=== PATIENT | male | born 1990 | race African-American/Black ===

== ENCOUNTER 2016-11-03 15:37 | Emergency (ER) | payer SELFPAY ==
[2015-02-17 19:59] VITALS: BP 122/79
[~2016-11-03] VITALS: Ht 193 cm; Wt 88.5 kg
--- NOTE | 2016-11-03 16:22 | PHYS DOC ---
Past Medical History Past Medical History: Asthma Past Surgical History: Other Additional Past Surgical Histo: R ELBOW Alcohol Use: None Drug Use: None Adult General Chief Complaint Chief Complaint: SEXUALLY TRANSMITTED DISEASE HPI HPI Patient is a 26 year old male presents to the emergency department with a history of exposure to chlamydia. Patient states his girl friend called him and told him that she had tested positive for chlamydia. Patient denies any penile drainage. He denies any difficulty with urination frequency urgency or pain with urination denies any abdominal pain nausea vomiting or fevers. Review of Systems Review of Systems Constitutional: Denies fever or chills [] Eyes: Denies change in visual acuity, redness, or eye pain [] HENT: Denies nasal congestion or sore throat [] Respiratory: Denies cough or shortness of breath [] Cardiovascular: No additional information not addressed in HPI [] GI: Denies abdominal pain, nausea, vomiting, bloody stools or diarrhea [] : Denies dysuria or hematuria [] Musculoskeletal: Denies back pain or joint pain [] Integument: Denies rash or skin lesions [] Neurologic: Denies headache, focal weakness or sensory changes [] Current Medications Current Medications Current Medications Medications (Trade) Dose Ordered Sig/Sonja Start Time Stop Time Status Last Admin Dose Admin Azithromycin (Zithromax) 1,000 mg 1X ONCE 11/03/16 17:00 11/03/16 17:01 Ceftriaxone Sodium (Rocephin Im) 250 mg 1X ONCE 11/03/16 17:00 11/03/16 17:01 Metronidazole (Flagyl) 2,000 mg 1X ONCE 11/03/16 17:00 11/03/16 17:01 Allergies Allergies Allergies Coded Allergies Type Severity Reaction Last Updated Verified No Known Drug Allergies 12/17/14 No Physical Exam Physical Exam Constitutional: Well developed, well nourished, no acute distress, non-toxic appearance. [] HENT: Normocephalic, atraumatic, bilateral external ears normal, oropharynx moist, no oral exudates, nose normal. [] Eyes: PERRLA, EOMI, conjunctiva normal, no discharge. [] Neck: Normal range of motion, no tenderness, supple, no stridor. [] Cardiovascular:Heart rate regular rhythm, no murmur [] Lungs & Thorax: Bilateral breath sounds clear to auscultation [] Skin: Warm, dry, no erythema, no rash. [] Back: No tenderness Extremities: No tenderness, no cyanosis, no clubbing, ROM intact, no edema. [] Neurologic: Alert and oriented X 3, normal motor function, normal sensory function, no focal deficits noted. [] Psychologic: Affect normal, judgement normal, mood normal. [] Penile area without redness, lesions, no discharge noted, no testicular pain Current Patient Data Vital Signs Vital Signs Date Time Temp Pulse Resp B/P Pulse Ox O2 Delivery O2 Flow Rate FiO2 11/03/16 16:00 98.1 76 18 107/59 97 Room Air 98.1 Lab Values Laboratory Tests Test 11/03/16 16:10 Urine Collection Type Unknown Urine Color Yellow Urine Clarity Clear Urine pH 7.0 Urine Specific [place] 1.015 Urine Protein Negativemg/dL (NEG-TRACE) Urine Glucose (UA) Negativemg/dL (NEG) Urine Ketones (Stick) Negativemg/dL (NEG) Urine Blood Negative (NEG) Urine Nitrite Negative (NEG) Urine Bilirubin Negative (NEG) Urine Urobilinogen Dipstick 1.0mg/dL (0.2 mg/dL) Urine Leukocyte Esterase Small (NEG) Urine RBC Occ/HPF (0-2) Urine WBC 5-10/HPF (0-4) Urine Bacteria 0/HPF (0-FEW) Urine Mucus Slight/LPF Urine Sperm Present/HPF EKG EKG [] Radiology/Procedures Radiology/Procedures [] Course & Med Decision Making Course & Med Decision Making Pertinent Labs and Imaging studies reviewed. (See chart for details) Patient was provided with Rocephin injection with zithromax, and flagyl. Patient provided urine and was sent to lab. Urine positive for UTI patient will be placed on Cipro. Recommended plenty of fluids such as water and cranberry juice. Avoid cranberry juice cocktail, carbonated beverages, caffeine, citrus fruits and alcohol as this is considered irritants to the bladder. Patient was instructed to avoid sexual intercourse for 2 weeks, notify sex partners of treatment and avoid sexual intercourse for 2 weeks once they have been treated. Patient was provided with signs and symptoms to return to the emergency department. Patient agrees with treatment regimen and followup recommendations. Dragon Disclaimer Dragon Disclaimer This electronic medical record was generated, in whole or in part, using a voice recognition dictation system. Departure Departure Impression: Primary Impression: Exposure to STD Additional Impression: UTI (urinary tract infection) Disposition: 01 HOME, SELF-CARE Condition: STABLE Referrals: NO PCP (PCP) Patient Instructions: Sexually Transmitted Disease, [id number], Urinary Tract Infection, [id number] Additional Instructions: Activity as tolerated Avoid sexual activity for the next 2 weeks Notify your partners that you have been treated No sexual intercourse for 2 weeks after your partner has been treated. Drink plenty of fluids such as water and cranberry juice. Avoid cranberry juice cocktail, carbonated beverages, caffeine, citrus fruits, and alcohol as these are consider irritants to the bladder. Followup with primary care provider in 3-5 days Return to emergency department as needed for signs and symptoms that become worse. Scripts Ciprofloxacin Hcl (Cipro)500 Mg Tablet1 Tab PO BID #14 TAB Prov:ALEXEI SELLERS APRN 11/03/16 Problem Qualifiers ALEXEI SELLERS APRN Nov 03, 2016 16:22
[2016-11-03 16:23] LABS: BILIRUBIN,URINE NEGATIVE (NEG); GLUCOSE,URINE NEGATIVE (NEG); NITRITE,URINE NEGATIVE (NEG); PROTEIN,URINE NEGATIVE (NEG-TRACE)
[2016-11-03 16:42] LABS: BACTERIA,URINE 0 /HPF (0-FEW); RBC,URINE OCC /HPF (0-2); SPERM,URINE PRESENT /HPF
[2016-11-03] MEDS ORDERED: CIPR500T94 PO (16:50)
[2016-11-03] MEDS ORDERED: AZITHROMYCIN 250 MG TABLET. PO ONE (17:00)
[2016-11-03] MEDS ORDERED: CEFTRIAXONE IM 250 MG VIAL. IM ONE (17:00)
[2016-11-03] MEDS ORDERED: METRONIDAZOLE 500 MG TABLET. PO ONE (17:00)
--- NOTE | 2016-11-09 07:17 | VNOTE ---
CALL BACK NOTE CALL BACK Microbiology 11/03/16 Urine Culture - Final, Complete 11/03/16 Urine Culture Result 1 (LUANN) - Final, Complete Patient is positive for chlamydia but was treated. Called and left him a voicemail. ILA TRAMMELL APRN Nov 09, 2016 07:17
== END 2016-11-03 17:10 | disposition home or self-care (01) ==
LOC: ER 15:37
DX: Z20.2 Contact with and (suspected) exposure to infections with a predominantly sexual mode of transmission (principal); N39.0 Urinary tract infection, site not specified; J45.909 Unspecified asthma, uncomplicated
CPT/HCPCS: 81001; 87086; 87491; 87591; 96372; 99284; J0696; Q0144

== ENCOUNTER 2020-01-23 12:17 | Emergency (ER) | payer SELFPAY ==
[~2020-01-23] VITALS: Ht 193 cm; Wt 86.4 kg
[~2020-01-23 12:17] MED LIST: CIPR500T94 PO
[2020-01-23 12:47] VITALS: BP 126/78
[2020-01-23] MEDS ORDERED: HYDROcodone/APAP 5/325MG 1 TAB TABLET PO ONE (13:00)
--- NOTE | 2020-01-23 13:05 | PHYS DOC ---
Past Medical History Past Medical History: Asthma (ALEXEI GOMEZ APRN) Past Surgical History: Other Additional Past Surgical Histo: R ELBOW, R KNEE (ALEXEI GOMEZ APRN) Smoking Status: Current Every Day Smoker Alcohol Use: Rarely Drug Use: Marijuana (ALEXEI GOMEZ APRN) General Adult EDM: Chief Complaint: HAND PROBLEM HPI: HPI: Patient is a 29 year old male who presents with right hand pain and swelling after a fall today. Patient reports that he was walking down some stairs when his sandal got caught on a step and he fell he use his right hand to catch himself. He rates his pain 10 out of 10. He did not take anything for pain prior to arrival. Patient has some swelling to the ulnar side of right hand. Patient is able to wiggle fingers and bend his wrist, he is able to make a fist but reports increased pain with making a fist. Patient has good range of motion, sensation intact, strong pulse, warm extremity, cap refill less than 2 seconds. (ALEXEI GOMEZ APRN) Review of Systems: Review of Systems: Musculoskeletal: Denies back pain. Right hand joint pain. [] (ALEXEI GOMEZ MANAGER STRATEGY) Heart Score: Risk Factors: Risk Factors: DM, Current or recent (<one month) smoker, HTN, HLP, family history of CAD, obesity. Risk Scores: Score 0 - 3: 2.5% MACE over next 6 weeks - Discharge Home Score 4 - 6: 20.3% MACE over next 6 weeks - Admit for Clinical Observation Score 7 - 10: 72.7% MACE over next 6 weeks - Early Invasive Strategies (ALEXEI GOMEZ MANAGER STRATEGY) Allergies: Allergies: Allergies Coded Allergies Type Severity Reaction Last Updated Verified No Known Drug Allergies 12/17/14 No (ALEXEI GOMEZ MANAGER STRATEGY) Physical Exam: PE: Constitutional: Well developed, well nourished, no acute distress, non-toxic appearance. [] HENT: Normocephalic, atraumatic, bilateral external ears normal, oropharynx moist, no oral exudates, nose normal. [] Eyes: PERRLA, EOMI, conjunctiva normal, no discharge. [] Neck: Normal range of motion, no tenderness, supple, no stridor. [] Cardiovascular:Heart rate regular rhythm, no murmur [] Lungs & Thorax: Bilateral breath sounds clear to auscultation [] Abdomen: Bowel sounds normal, soft, no tenderness, no masses, no pulsatile masses. [] Skin: Warm, dry, no erythema, no rash. [] Back: No tenderness, no CVA tenderness. [] Extremities: Right lateral hand tenderness, no cyanosis, no clubbing, ROM intact, 1+ edema. [] Neurologic: Alert and oriented X 3, normal motor function, normal sensory function, no focal deficits noted. [] Psychologic: Affect normal, judgement normal, mood normal. [] (ALEXEI GOMEZ APRN) Current Patient Data: Vital Signs: Vital Signs Date Time Temp Pulse Resp B/P (MAP) Pulse Ox O2 Delivery O2 Flow Rate FiO2 01/23/20 12:47 98.1 82 12 126/78 (94) 99 Room Air 98.1 (ALEXEI GOMEZ APRN) EKG: EKG: [] (ALEXEI GOMEZ APRN) Radiology/Procedures: Radiology/Procedures: [] Impression: [facility] [address] [place] [address] IMAGING REPORT Signed PATIENT: CHASITY WATERS EACCOUNT: [id number] : 1990 LOCATION: ER AGE: 29 SEX: M EXAM STATUS: REG ER ORD. PHYSICIAN: ALEXEI GOMEZ APRN REASON: pain after fall rt hand PROCEDURE: HAND RIGHT 3V PROCEDURE: WRIST 3V RIGHT, HAND RIGHT 3V STUDY DATE: 01/23/2020 CLINICAL INDICATION / HISTORY: Reason: pain after fall rt hand / Spl. Instructions: / History: . TECHNIQUE: PA, lateral and oblique views of the right hand. COMPARISON: None FINDINGS: [place] dorsal acute proximal fifth metacarpal fracture is present without displacement. No other fracture or dislocation is identified. The bone density is normal. The joint spaces are maintained, and there are no erosions to suggest an inflammatory arthropathy. The soft tissues show mild soft tissue swelling in the hypothenar eminence. IMPRESSION: Acute apex dorsal fracture of the proximal fifth metacarpal right hand. PROCEDURE: WRIST 3V RIGHT, HAND RIGHT 3V STUDY DATE: 01/23/2020 CLINICAL INDICATION / HISTORY: Reason: pain after fall rt hand / Spl. Instructions: / History: . TECHNIQUE: 3 views right wrist COMPARISON: Right hand x-rays same day FINDINGS: The radiocarpal and intracarpal relationships are maintained. There is no fracture or dislocation in the wrist bones. Incidental apex dorsal proximal fifth metacarpal fracture noted. The bone density is normal. Mild soft tissue swelling overlying the hypothenar eminence present. IMPRESSION: No acute abnormality in the right wrist. However, there is an acute base of fifth metacarpal fracture Electronically signed by: Velma Price MD (01/23/2020 1:35 PM) [id number] DICTATED and SIGNED BY: VELMA PRICE MD DATE: 01/23/20 4423 (ALEXEI GOMEZ APRN) Course & Med Decision Making: Course & Med Decision Making Pertinent Labs and Imaging studies reviewed. (See chart for details) Patient is alert and oriented acting appropriately. Skin is pink warm and dry. Patient is denying any paresthesia to his right hand. Range of motion intact, sensation intact, strong pulse. Patient has swelling to the ulnar aspect of his right hand. Will obtain x-ray of right hand and wrist. Patient is requesting pain medication at this time, will order one Holmen tablet. Patient Is placed in an ulnar gutter splint. Patient to follow-up with orth opedics. Splint assessment: Neurovascularly intact post splint replacement with good fit. Patient's extremity symptoms have stabilized well they have been evaluated in the department and are appropriate for outpatient follow-up. No evidence of compartment syndrome, neurologic injury, vascular injury, open joint, open fracture, tendon laceration, or foreign body. [] (ALEXEI GOMEZ APRN) Dragon Disclaimer: Dragon Disclaimer: This electronic medical record was generated, in whole or in part, using a voice recognition dictation system. (ALEXEI GOMEZ APRN) Departure Departure Impression: Primary Impression: Closed fracture of 5th metacarpal Qualified Codes: S62.346A - Nondisplaced fracture of base of fifth metacarpal bone, right hand, initial encounter for closed fracture Disposition: 01 HOME, SELF-CARE Condition: STABLE Referrals: NO PCP (PCP) ROSE MARTIN MD Patient Instructions: Hand Fracture, Fifth Metacarpal Additional Instructions: Use ice and elevation to help with swelling and pain. Take medication as prescribed and do not drive or drink alcohol with this medication. Scripts Ibuprofen (IBUPROFEN) 600 Mg Tablet 600 MG PO PRN Q6HRS PRN for INFLAMMATION, #20 TAB Prov: ALEXEI GOMEZ APRN 01/23/20 Hydrocodone/Apap 5-325 (NORCO 5-325 TABLET) 1 Each Tablet 1 TAB PO PRN Q6HRS PRN for PAIN, #10 TAB 0 Refills Prov: ALEXEI GOMEZ APRN 01/23/20 Justicifation of Admission Dx: Justifications for Admission: Justification of Admission Dx: N/A (ALEXEI GOMEZ APRN) Attending Signature Attending Signature I have participated in the care of this patient and I have reviewed and agree with all pertinent clinical information above including history, exam, and recommendations. (GINA CONTRERAS DO) ALEXEI GOMEZ APRN Jan 23, 2020 13:05 GINA CONTRERAS DO Jan 23, 2020 14:04
--- NOTE | 2020-01-23 13:38 | RAD ---
PROCEDURE: WRIST 3V RIGHT, HAND RIGHT 3V STUDY DATE: 01/23/2020 CLINICAL INDICATION / HISTORY: Reason: pain after fall rt hand / Spl. Instructions: / History: . TECHNIQUE: PA, lateral and oblique views of the right hand. COMPARISON: None FINDINGS: [place] dorsal acute proximal fifth metacarpal fracture is present without displacement. No other fracture or dislocation is identified. The bone density is normal. The joint spaces are maintained, and there are no erosions to suggest an inflammatory arthropathy. The soft tissues show mild soft tissue swelling in the hypothenar eminence. IMPRESSION: Acute apex dorsal fracture of the proximal fifth metacarpal right hand. PROCEDURE: WRIST 3V RIGHT, HAND RIGHT 3V STUDY DATE: 01/23/2020 CLINICAL INDICATION / HISTORY: Reason: pain after fall rt hand / Spl. Instructions: / History: . TECHNIQUE: 3 views right wrist COMPARISON: Right hand x-rays same day FINDINGS: The radiocarpal and intracarpal relationships are maintained. There is no fracture or dislocation in the wrist bones. Incidental apex dorsal proximal fifth metacarpal fracture noted. The bone density is normal. Mild soft tissue swelling overlying the hypothenar eminence present. IMPRESSION: No acute abnormality in the right wrist. However, there is an acute base of fifth metacarpal fracture Electronically signed by: Margaret Price MD (01/23/2020 1:35 PM) [id number]
[2020-01-23] MEDS ORDERED: HYDR-3164 PO (13:45)
[2020-01-23] MEDS ORDERED: IBUP-1007 PO (13:45)
== END 2020-01-23 14:22 | disposition home or self-care (01) ==
LOC: ER 12:17
DX: S62.346A Nondisplaced fracture of base of fifth metacarpal bone, right hand, initial encounter for closed fracture (principal); J45.909 Unspecified asthma, uncomplicated; F17.200 Nicotine dependence, unspecified, uncomplicated; W10.8XXA Fall (on) (from) other stairs and steps, initial encounter; Y93.01 Activity, walking, marching and hiking; Y92.89 Other specified places as the place of occurrence of the external cause; Y99.8 Other external cause status
CPT/HCPCS: 29125; 73110; 73130; 99283; 99284